=== PATIENT | male | born 1990 | race Caucasian/White ===

== ENCOUNTER 2021-01-25 10:46 | Emergency (ER) | payer OTHER, SELFPAY ==
--- NOTE | ~2021-01-25 | CT_ITS ---
EXAMINATION: CT diagnostic chest wo con DATE: 01/25/2021 13:53 INDICATION: Loculated pleural effusion, recent pneumonia TECHNIQUE: Computed tomography (CT) of the chest was performed without intravenous contrast. The dose -length product (DLP) was 147.88 mGy-cm. Automated exposure control and iterative reconstruction tech nique were employed. COMPARISON: None FINDINGS: There is an approximately 3.5 x 1.7 cm loculated fluid collection posterolateral to the lef t lower lobe. There are minimal patchy airspace opacities of the right middle and upper lobes, left u pper lobe, and left lower lobe. No pneumothorax is identified. Axillary lymph nodes are upper limits of normal in size. The heart size is normal. Contrast from earlier CT she is seen in the partially vi sualized left kidney. IMPRESSION: 1. Small loculated left pleural effusion, likely sequela of recent pneumonia. 2. Minimal patchy bilateral airspace opacities, consistent with pneumonia. Reviewed, dictated and finalized at location A. IGINAL LIAISON OFFICER
--- NOTE | ~2021-01-25 | CT_ITS ---
EXAMINATION: CT abdomen pelvis w con INDICATION: Upper abdominal pain and vomiting TECHNIQUE: Computed tomographic images of the abdomen and pelvis were obtained after the administrati on of 100 cc of Omnipaque 350 intravenous contrast. The dose-length product (DLP) was 279.76 mGy-cm. Automated exposure control and iterative reconstruction technique were employed. COMPARISON: None available FINDINGS: There is a 2.9 x 1.7 cm partially imaged loculated fluid collection in the left pleural spa ce. There are minimal airspace opacities of the left lower lobe. The liver, spleen, pancreas, gallbla dder, and adrenal glands are normal. Nonobstructing stones of the right kidney measure up to 2 mm. Th e left kidney is unremarkable. No pathologically enlarged abdominal or pelvic lymph nodes are identif ied. There is no free intraperitoneal gas or evidence of bowel obstruction. A large volume of colonic stool is present. There is mildly anterior vertebral body wedging at the thoracolumbar junction. IMPRESSION: 1. Constipation. 2. Small loculated left pleural effusion. 3. Minimal left lower lobe airspace opacities, atelectasis versus pneumonia. Reviewed, dictated and finalized at location A. MODELER
[2021-01-25 10:43] VITALS: BP 167/95; PULSE 89; RESP 18; TEMP 36.5; O2SAT 96
[2021-01-25 11:32] LABS: Basophils Absolute Auto 0.1 K/mm3 (0.0-0.1); Basophils Percent Auto 0.7 % (0.2-1.2); Hemoglobin 10.6 g/dL (14.0-18.0); Immature Granulocyte Absolute 0.01 K/mm3 (0.00-0.031); Immature Granulocyte Percent A 0.1 % (0-0.5); Lymphocytes Absolute Auto 0.97 K/mm3 (0.9-3.2); Mean Corpuscular HGB Conc 33.1 g/dl (32-36); Mean Corpuscular Hemoglobin 29.5 pg (26-34); Mean Corpuscular Volume 89.1 fl (80-100); Mean Platelet Volume 8.3 fl (7.4-10.4); Monocytes Absolute Auto 0.6 K/mm3 (0.1-0.6); Neutrophils Absolute Auto 5.8 K/mm3 (1.3-6.7); Neutrophils Percent Auto 78.2 % (45.5-73.1); Platelet Count Result 274 k/mm3 (150-375); Red Blood Count 3.59 M/mm3 (4.6-6.20); Red Cell Distribution Width 15.4 % (11.5-14.5); White Blood Count 7.5 K/mm3 (4.5-10.0)
[2021-01-25] MEDS: FAMOTIDINE 20 MG/2 ML VIAL IV PUSH (11:36)
[2021-01-25] MEDS: SODIUM CHLORIDE 0.9% IV 1,000 ML 999 ML IV CONT (11:36)
--- NOTE | 2021-01-25 11:41 | ED.ABDPAIN ---
HPI - Abdominal Pain General Chief Complaint: Abdominal Pain Stated Complaint: ABD PAIN Time Seen by Provider: 01/25/21 11:30 Source: patient Mode of arrival: EMS Limitations: no limitations History of Present Illness HPI narrative: This is a 30-year-old male that presents to the emergency department for abdominal pain present since this morning. Reports over the last couple of days he has had vomiting and diarrhea. This morning he started to have some crampy upper abdominal pain. He has history of methamphetamine abuse, reports he has not used in a week. Denies fever, dysuria, hematuria. Related Data Allergies Allergy/AdvReac Type Severity Reaction Status Date / Time Bumble Bee Allergy Intermediate HIVES, Uncoded 01/25/21 10:46 SWELLING Review of Systems Review of Systems: CONSTITUTIONAL: Denies fever CARDIOVASCULAR: Denies chest pain RESPIRATORY: Denies dyspnea. GASTROINTESTINAL: Reports abdominal pain, nausea, vomiting, and diarrhea. GENITOURINARY: Denies dysuria or hematuria. All systems reviewed & are unremarkable except as noted in HPI and below PMFSH Past Medical History Medical History (Updated 01/25/21 @ 15:15 by Love Saavedra PA-C) History of drug abuse Social History Social History (Updated 01/25/21 @ 11:43 by Love Saavedra PA-C) Substance use: current Substance use type: amphetamines Exam Narrative: GENERAL: Disheveled, well-nourished, and in mild acute distress due to pain. HEAD: Normocephalic, atraumatic. EYES: EOMI. CHEST: Clear to auscultation. No respiratory distress. No wheezes rales or rhonchi HEART: Regular rate and rhythm. No murmur heard. Normal peripheral pulses. ABDOMEN: Soft, nondistended, normal active bowel sounds. Tender to palpation throughout the abdomen, without guarding. No CVA tenderness EXTREMITIES: Normal range of motion. No edema. SKIN: Warm, dry, no rash. NEURO: No focal deficits. Alert and oriented x3. PSYCH: Normal mood and affect Course Vital Signs Vital signs: Vital Signs Temperature 97.7 F 01/25/21 10:43 Pulse Rate 89 01/25/21 10:43 Respiratory Rate 18 01/25/21 10:43 Blood Pressure 167/95 H 01/25/21 10:43 Pulse Oximetry 96 01/25/21 10:43 Temperature 97.7 F 01/25/21 10:43 Pulse Rate 95 01/25/21 13:20 Respiratory Rate 16 01/25/21 13:20 Blood Pressure 152/99 H 01/25/21 13:20 Pulse Oximetry 98 01/25/21 13:20 MDM - Abdominal Pain MDM Narrative Medical decision making narrative: Patient presents to the emergency department for abdominal pain, nausea, vomiting and diarrhea. Patient's vitals are stable. He is afebrile and nontoxic-appearing. CBC shows normocytic anemia with hemoglobin of 10.6. Metabolic panel and lipase without concerning findings. UA without evidence of infection. Patient is a methamphetamine user. Urine drug screen is positive for amphetamines and opiates. CT scan of the abdomen and pelvis shows a small loculated left pleural effusion. Shows constipation. CT scan of the chest was obtained which once again shows a small loculated left pleural effusion, likely sequela of recent pneumonia. Shows minimal patchy airspace opacities bilaterally consistent with pneumonia. Patient does report he was recently admitted to [place] for pneumonia. He does report he recently finished those antibiotics and was feeling better. He has an appointment to follow-up with pulmonology next week. He was unable to give me the name of the doctor he is following up with. Due to findings on imaging I will extend his oral antibiotics. And he was instructed to follow-up at his scheduled appointment. Patient hydrated and given antiemetic in the ED with relief. Able to tolerate p.o. challenge. Patient is stable and felt appropriate for further outpatient evaluation. He was given warnings to return to the ER Lab Data Attestation: I reviewed the patient's lab results. Result diagrams: 01/25/21 11:21
[2021-01-25 11:44] LABS: Alanine Aminotransferase 116 U/L (4-50); Albumin Level 4.4 g/dL (3.5-5.1); Alkaline Phosphatase 68 U/L (38-126); Anion Gap 7 mmol/L (8-16); Aspartate Amino Transferase 93 U/L (17-59); Bilirubin,Total 0.3 mg/dL (0.2-1.3); Blood Urea Nitrogen 16 mg/dL (9-20); Calcium 9.4 mg/dL (8.4-10.2); Carbon Dioxide 25 mmol/L (22-30); Chloride 105 mmol/L (98-107); Estimated CRCL calculation 183 ml/min; Estimated Glomerular Filt Rate > 60; Glucose 113 mg/dL (65-110); Lipase 22 U/L (23-300); Potassium 4.1 mmol/L (3.4-5.0); Sodium 137 mmol/L (137-145)
[2021-01-25 12:12] LABS: Ethanol < 10 mg/dL (<10)
[2021-01-25] MEDS: MORPHINE SULFATE (*CRX) 2 MG/ML INJ IV PUSH (12:19)
[2021-01-25 13:20] VITALS: BP 152/99; PULSE 95; RESP 16; O2SAT 98
[2021-01-25 13:38] LABS: Add Urine Microscopic? YES; Appearance Urine Clear (Clear); Bilirubin Urine Negative (Negative); Blood Urine 2+ (Negative); Color Urine Yellow (Yellow); Glucose Urine UA Negative (Negative); Ketones Urine Negative (Negative); Leukocyte Esterase Ur Negative LEU/UL (Negative); Mucus Urine Rare /lpf; Nitrate Urine Negative (Negative); Protein Urine Negative (Negative); Specific Grav Ur 1.028 (1.001-1.035); Urobilinogen Urine Negative mg/dL (<2.0); WBC Urine 0-3 /hpf
[2021-01-25 13:41] LABS: Barbiturate Screen Urine Negative (Negative); Benzodiazepines Screen Urine Negative (Negative)
--- NOTE | 2021-01-25 13:43 | PC.NURSE ---
Pt to CT.
[2021-01-25 14:10] LABS: Amphetamine Screen Urine Positive (Negative); Cannabinoid Screen Urine Negative (Negative); Cocaine Screen Urine Negative (Negative); Methadone Screen Urine Negative (Negative); Opiate Screen Urine Positive (Negative); Phencyclidine Screen Urine Negative (Negative)
[2021-01-25 16:00] VITALS: BP 139/87; PULSE 83; RESP 16; O2SAT 98
== END 2021-01-25 16:06 | disposition home or self-care (01) ==
PROVIDERS: Physician Assistant; Emergency Provider Emergency Medicine
DX: J18.9 Pneumonia, unspecified organism (principal); K59.00 Constipation, unspecified
CPT/HCPCS: 36415; 71250; 74177; 80053; 80307; 81001; 83690; 85025; 96361; 96365; 96375; 99284; J0131; J2270; J7030; Q9967